=== PATIENT | female | born 1945 | race Caucasian/White ===

== ENCOUNTER 2019-03-02 06:00 | Outpatient (RCR) | payer MEDICARE, MEDICAID, SELFPAY | END 2019-04-01 00:01 | LOC: SPT 06:00 | PROVIDERS: Family Provider Family Medicine; Visit Provider Orthopaedic Surgery | DX: S42.202D Unspecified fracture of upper end of left humerus, subsequent encounter for fracture with routine healing (principal); X58.XXXD Exposure to other specified factors, subsequent encounter | CPT/HCPCS: 97110 ×8 ==

== ENCOUNTER 2019-04-03 | Outpatient (RCR) | payer MEDICARE, MEDICAID, SELFPAY | END 2019-04-09 | disposition home or self-care (01) | LOC: SPT | PROVIDERS: Family Provider Family Medicine; PCP Family Medicine; Visit Provider Orthopaedic Surgery | DX: M53.3 Sacrococcygeal disorders, not elsewhere classified (principal) | CPT/HCPCS: 97110 ==

== ENCOUNTER → 2019-04-07 13:53 | Outpatient (BNVA) | payer MEDICARE, MEDICAID, SELFPAY | PROVIDERS: Family Provider Family Medicine; PCP Family Medicine; Visit Provider Orthopaedic Surgery | DX: S42.202A Unspecified fracture of upper end of left humerus, initial encounter for closed fracture (principal); X58.XXXA Exposure to other specified factors, initial encounter | CPT/HCPCS: 73030 ==

== ENCOUNTER → 2019-05-08 10:42 | Outpatient (BNVA) | payer MEDICARE, MEDICAID, SELFPAY | PROVIDERS: Family Provider Family Medicine; PCP Family Medicine; Visit Provider Orthopaedic Surgery | DX: S42.292A Other displaced fracture of upper end of left humerus, initial encounter for closed fracture (principal); X58.XXXA Exposure to other specified factors, initial encounter | CPT/HCPCS: 73030 ==

== ENCOUNTER 2019-05-14 10:24 | Outpatient (CLI) | payer MEDICARE, MEDICAID, SELFPAY ==
--- NOTE | 2019-05-14 | XR_ITS ---
WS: [id number] KNEE LEFT TECHNIQUE: 3 views of the left knee CLINICAL INFORMATION: LEFT MEDIAL KNEE PAIN, RIGHT KNEE PAIN COMPARISON: None. FINDINGS: Osteopenia. Advanced degenerative arthritis medial joint compartment with joint space narrowing. Late ral compartment is better preserved. Vascular calcification. Hypertrophic changes along the joint herminio e. Hypertrophic patella. Advanced degenerative narrowing patellofemoral articulation. XR/XR knee LT 3V* [id number] IMPRESSION: Advanced degenerative arthritis involving the medial joint compartment and toro llofemoral articulation.
--- NOTE | 2019-05-14 | XR_ITS ---
WS: [id number] KNEE RIGHT TECHNIQUE: 3 views of the right knee CLINICAL INFORMATION: LEFT MEDIAL KNEE PAIN, RIGHT KNEE PAIN COMPARISON: None. FINDINGS: Osteopenia. Advanced degenerative arthritis medial joint compartment joint space narrowing. Lateral c ompartment is better preserved. Vascular calcification. Hypertrophic patella. Advanced narrowing at t he patellofemoral articulation. XR/XR knee RT 3V* [id number] IMPRESSION: Advanced degenerative arthritis medial joint compartment and patellofemoral art iculation.
--- NOTE | 2019-05-14 | XR_ITS ---
WS: [id number] LUMBAR SPINE TECHNIQUE: 5 views of the lumbar spine CLINICAL INFORMATION: PAIN OF RIGHT SACROILIAC JOINT COMPARISON: None. FINDINGS: Five [id number]-htldmoy lumbar vertebral bodies. Osteopenia. Mild lumbar curve convex left. Cholecystect luis carlos clips. Pelvic phleboliths. Disc space heights are relatively well-preserved. No acute appearing c ompression fractures. Mild facet arthropathy L5-S1. Chronic anterior wedging in the lower thoracic sp ine with hypertrophic changes. No instability on flexion-extension. XR/XR lumbar spine min 4V [id number] IMPRESSION: 1. Mild lumbar curve convex left. No instability on flexion-extension. 2. Disc space heights vertebral body heights are relatively well-preserved. 3. Facet arthropathy L5-S1. 4. Chronic anterior wedging lower thoracic spine.
== END 2019-05-14 10:25 | disposition home or self-care (01) ==
LOC: RADWPI 12:22 → RADOUTREAD 12:39
PROVIDERS: Family Provider Family Medicine; PCP Family Medicine; Visit Provider Family Medicine
DX: Z76.89 Persons encountering health services in other specified circumstances (principal)

== ENCOUNTER 2019-05-26 06:00 | Outpatient (RCR) | payer MEDICARE, MEDICAID, SELFPAY | END 2019-05-31 23:59 | disposition home or self-care (01) | LOC: SPT 06:00 | PROVIDERS: Family Provider Family Medicine; PCP Family Medicine; Referring Provider Family Medicine; Visit Provider Family Medicine | DX: M53.3 Sacrococcygeal disorders, not elsewhere classified (principal) | CPT/HCPCS: 97110; 97161 ==

== ENCOUNTER 2019-06-01 06:00 | Outpatient (RCR) | payer MEDICARE, MEDICAID, SELFPAY | END 2019-07-01 12:36 | disposition home or self-care (01) | LOC: SPT 06:00 | PROVIDERS: Family Provider Family Medicine; PCP Family Medicine; Referring Provider Family Medicine; Visit Provider Family Medicine | DX: M53.3 Sacrococcygeal disorders, not elsewhere classified (principal) | CPT/HCPCS: 97110; 97530 ==

== ENCOUNTER 2019-07-11 11:25 | Emergency (ER) | payer MEDICARE, MEDICAID, SELFPAY ==
[2019-07-11 11:35] VITALS: BP 157/84; PULSE 78; RESP 20; TEMP 36.9; O2SAT 97; BMI 37.5
--- NOTE | 2019-07-11 11:48 | ED_ITS ---
HPI - Abdominal Pain General: Chief Complaint: Abdominal Pain Stated Complaint: ABD PAIN Time Seen by Provider: 07/11/19 11:43 History of Present Illness: HPI narrative: 74-year-old female presents with complaint of abdominal pain. 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 Patient relates she has had pain for the last couple days in the epigastric right upper quadrant area has had nausea with no vomiting. No hematemesis coffee-ground emesis. No dysuria urgency or frequency denies respiratory symptoms or fever. Has taken some [id number] antacids with no significant relief. Associated Symptoms: Reports nausea; Denies bloating, chills, coffee ground emesis, constipation, diarrhea, dysuria, fever(s), hematochezia, hematemesis, melena and vomiting Review of Systems Const: Denies: fever, chills, body aches, change in appetite, fatigue or malaise ENMT: Denies: throat pain, ear pain, nasal discharge or nasal congestion Card: Denies: chest pain, edema, shortness of breath on exertion or shortness of breath when lying down Resp: Denies: shortness of breath, productive cough or non-productive cough GI: Reports: abdominal pain and nausea; Denies: vomiting, vomiting blood, coffee grounds in vomit, diarrhea, constipation, bloating, blood in stool or black tarry stool : Denies: flank pain, difficulty urinating, painful urination, urinary frequency or urinary urgency Skin/Breast: Denies: rash or itching PFS ED PFSH: Family History Sister Diabetes Denies family history of CAD (coronary artery disease) Clotting disorder Dementia Hyperlipidemia Psychiatric illness Chronic kidney disease (CKD) Suicide Anesthesia complication Bleeding disorder Family history of premature coronary artery disease Lung disease Cancer Hypertension Stroke Social History Smoking and tobacco status: never smoked Second hand smoke exposure: No Alcohol intake: never Physical Exam Narrative: EXAM NARRATIVE: History and exam done with assistance of oracle business analyst on speaker phone. Const: COMMON NORMALS: no apparent distress GENERAL APPEARANCE: cooperative and comfortable ORIENTATION/CONSCIOUSNESS: Yes awake, Yes oriented to person, Yes oriented to place and Yes oriented to time HENMT: COMMON NORMALS: normocephalic, head/scalp atraumatic, hearing grossly normal bilaterally, external ears normal, EAC's normal, TM's normal bilaterally, nasal mucous membranes and turbinates normal, moist oral mucous membranes and oropharynx normal HEAD & SCALP: normocephalic and atraumatic NOSE: nasal mucous membranes and turbinates normal EXTERNAL EAR: Yes external ears normal EXTERNAL AUDITORY CANAL: EAC's normal TYMPANIC MEMBRANE: TM's normal bilaterally Eye: COMMON NORMALS: PERRL, EOMs intact bilaterally, conjunctivae normal and no scleral icterus CONJUNCTIVA: Yes conjunctivae normal PUPIL: Yes PERRL Neck/C-Spine: COMMON NORMALS: full ROM, no lymphadenopathy, supple and no JVD Lymph: LYMPHATIC: no lymphadenopathy noted and no lymphedema noted Resp: COMMON NORMALS: normal respiratory effort, no retractions, no use of accessory muscles and clear to auscultation bilaterally AUSCULTATION: clear to auscultation bilaterally Cardio: COMMON NORMALS: no JVD, regular rate, regular rhythm and no murmurs RATE: regular rate RHYTHM: regular rhythm GI: COMMON NORMALS: soft to palpation and no hepatosplenomegaly AUSCULTATION: Yes normoactive bowel sounds PALPATION: Yes soft, Yes tender Details: RUQ and other (Epigastric), No guarding and Yes no hepatosplenomegaly Extremity: COMMON NORMALS: normal to inspection, normal capillary refill, no clubbing, cyanosis or edema, no calf tenderness and no pedal edema Neuro: SENSORIUM/ORIENTATION: Yes oriented to person, Yes oriented to place and Yes oriented to time Skin: COMMON NORMALS: no rashes or lesions noted GENERAL SKIN EXAM: no rashes or lesions noted Course Vital Signs: Vital signs: Vital Signs Temperature 98.4 F 07/11/19 11:35 Pulse Rate 62 07/11/19 15:26 Respiratory Rate 16 07/11/19 16:06 Blood Pressure 127/71 07/11/19 16:06 Pulse Oximetry 94 07/11/19 15:26 MDM - Abdominal Pain MDM Narrative: Medical decision making narrative: No significant finding on exam patient reports pain is improved somewhat. We will go ahead and discharge her home on pantoprazole twice daily for 14 days and then daily follow-up with primary care doctor within the next week. Lab Data: Labs: Lab Results 07/11/19 07/11/19 07/11/19 Range/Units 12:26 12:26 12:35 WBC 6.4 (4.0-10.0) 10^3/ uL RBC 4.31 (4.1-5.3) 10^6/u L Hgb 12.3 (11.5-15.3) g/dL Hct 38.3 (37.0-47.0) % MCV 88.9 (81-99) fL MCH 28.5 (28.0-34.0) pg MCHC 32.1 (30.0-36.0) g/dL RDW 13.1 (12.1-15.1) % Plt Count 271 (130-400) 10^3/c mm MPV 9.2 (7.4-10.4) fL Neut % (Auto) 61.0 % Lymph % (Auto) 30.5 % [place] % (Auto) 6.7 % Eos % (Auto) 0.6 % Baso % (Auto) 0.6 % Neut # (Auto) 3.9 (1.8-7.7) 10^3/u L Lymph # (Auto) 2.0 (0.8-4.8) 10^3/u L [place] # (Auto) 0.4 (0.2-0.9) 10^3/u L Eos # (Auto) 0.0 (0.0-0.8) 10^3/u L Baso # (Auto) 0.0 (0.0-0.1) 10^3/u L Nucleated RBC % (a uto) 0 % Nucleated RBCs # 0.0 /100WBC Sodium 141 (136-145) mmol/L Potassium 4.0 (3.5-5.1) mmol/L Chloride 102 (98-107) mmol/L Carbon Dioxide 28 (22-29) mmol/L Anion Gap 15.0 (5-19) BUN 16 (8-23) mg/dL Creatinine 0.9 (0.5-0.9) mg/dL Glucose 130 H (65-115) mg/dL Calculated Osmolal ity 290 (285-295) mOsm/k g Calcium 10.1 (8.5-10.5) mg/dL Total Bilirubin 0.6 (0.15-1.2) mg/dL AST 19 (0-32) U/L ALT 15 (0-33) U/L Alkaline Phosphata se 104 (35-105) IU/L Total Protein 7.6 (6.6-8.7) g/dL Albumin 4.1 (3.5-5.2) g/dL Globulin 3.5 (1.3-4.6) g/dL Lipase 30 (13-60) U/L Urine Color Yellow (Yellow) Urine Appearance Clear (CLEAR) Urine pH 6.5 (5-7) Ur Specific Gravit y 1.005 (1.005-1.030) Urine Protein Neg (Negative) Urine Glucose (UA) Norm (Normal) Urine Ketones Negative (Negative) Urine Blood Neg (Negative) Urine Nitrate Negative (Negative) Urine Bilirubin Neg (NEGATIVE) Urine Urobilinogen Norm (Negative) mg/dL Ur Leukocyte Asiya ase Negative (Negative) Urine Opiates Scre en (Negative) ng/mL Ur Barbiturates Sc reen (Negative) ng/mL Ur Phencyclidine S crn (Negative) ng/mL Ur Amphetamines Sc reen (Negative) ng/mL U Benzodiazepines Scrn (Negative) ng/mL Urine Cocaine Scre en (Negative) ng/mL U Marijuana (THC) Screen (Negative) ng/mL 07/11/19 Range/Units 12:35 WBC (4.0-10.0) 10^3/ uL RBC (4.1-5.3) 10^6/u L Hgb (11.5-15.3) g/dL Hct (37.0-47.0) % MCV (81-99) fL MCH (28.0-34.0) pg MCHC (30.0-36.0) g/dL RDW (12.1-15.1) % Plt Count (130-400) 10^3/c mm MPV (7.4-10.4) fL Neut % (Auto) % Lymph % (Auto) % [place] % (Auto) % Eos % (Auto) % Baso % (Auto) % Neut # (Auto) (1.8-7.7) 10^3/u L Lymph # (Auto) (0.8-4.8) 10^3/u L [place] # (Auto) (0.2-0.9) 10^3/u L Eos # (Auto) (0.0-0.8) 10^3/u L Baso # (Auto) (0.0-0.1) 10^3/u L Nucleated RBC % (a uto) % Nucleated RBCs # /100WBC Sodium (136-145) mmol/L Potassium (3.5-5.1) mmol/L Chloride (98-107) mmol/L Carbon Dioxide (22-29) mmol/L Anion Gap (5-19) BUN (8-23) mg/dL Creatinine (0.5-0.9) mg/dL Glucose (65-115) mg/dL Calculated Osmolal ity (285-295) mOsm/k g Calcium (8.5-10.5) mg/dL Total Bilirubin (0.15-1.2) mg/dL AST (0-32) U/L ALT (0-33) U/L Alkaline Phosphata se (35-105) IU/L Total Protein (6.6-8.7) g/dL Albumin (3.5-5.2) g/dL Globulin (1.3-4.6) g/dL Lipase (13-60) U/L Urine Color (Yellow) Urine Appearance (CLEAR) Urine pH (5-7) Ur Specific Gravit y (1.005-1.030) Urine Protein (Negative) Urine Glucose (UA) (Normal) Urine Ketones (Negative) Urine Blood (Negative) Urine Nitrate (Negative) Urine Bilirubin (NEGATIVE) Urine Urobilinogen (Negative) mg/dL Ur Leukocyte Asiya ase (Negative) Urine Opiates Scre en Negative (Negative) ng/mL Ur Barbiturates Sc reen Negative (Negative) ng/mL Ur Phencyclidine S crn Negative (Negative) ng/mL Ur Amphetamines Sc reen Negative (Negative) ng/mL U Benzodiazepines Scrn Negative (Negative) ng/mL Urine Cocaine Scre en Negative (Negative) ng/mL U Marijuana (THC) Screen Negative (Negative) ng/mL Discharge Plan Discharge Patient Disposition: Home, Self-Care Clinical Impression: Gastroesophageal reflux disease Condition: Stable Prescriptions: New Zofran 4 mg tablet 4 mg PO Q6H PRN (Reason: nausea and vomiting) Qty: 20 RF: 0 pantoprazole 40 mg tablet,delayed release (DR/EC) 40 mg PO BID 14 Days Qty: 28 RF: 0 Changed pantoprazole 40 mg tablet,delayed release (DR/EC) 40 mg PO BID Qty: 0 RF: 0 No Action oxycodone-acetaminophen [Percocet] 5-325 mg tablet 1 tab PO Q6H PRNRF: 0 levothyroxine 50 mcg capsule 50 mcg PO ONCE RF: 0 B-complex with vitamin C Capsule 1 cap PO ONCE RF: 0 irbesartan-hydrochlorothiazide 300-12.5 mg tablet 1 tab PO ONCE RF: 0 Discharge Orders: Discharge Order (Routine); Ordered 07/11/19 Ordered By: Kelvin Phillips Referrals: Harjit Gruber MD [Primary Care Provider] - Discharge Diet: As Directed Discharge Activity: Increase activity as tolerated Patient Instructions: Diet for Ulcers and Gastritis (ED) Discharge Date/Time: 07/11/19 16:08 Coding Level of Care Code ED Stick Roller for Tatyg Fwd Exam Comprehensive
--- NOTE | 2019-07-11 12:13 | ECG_ITS ---
Measurements Intervals [place] Rate: 66 P: 17 NE: 183 QRS: 3 QRSD: 93 T: 23 QT: 415 QTc: 435 SINUS RHYTHM Compared to ECG 08/02/2015 17:29:30 Sinus arrhythmia no longer present Left ventricular hypertrophy no longer present Electronically Signed On 07-11-2019 17:06:33 CDT by Jacqueline Kirk M.D. [id number]
--- NOTE | 2019-07-11 12:13 | CT_ITS ---
WS: [id number] CT ABDOMEN PELVIS TECHNIQUE: Contrast-enhanced CT of the abdomen and pelvis with coronal and sagittal reformatted image s. CLINICAL INFORMATION: abd pain COMPARISON: 2008 DLP: 1853.[address] scans at [facility] use at least one of these dose optimization techniques: automat ed exposure control; mA and/or kV adjustment per patient size (includes targeted exams where dose is matched to clinical indication); or iterative reconstruction. FINDINGS: Liver is normal in appearance. Cholecystectomy clips. Normal spleen. Mild fatty atrophy of the pancre as. Small esophageal hiatal hernia. Small left adrenal adenoma measuring 18 mm. Right adrenal gland i s normal. No hydronephrosis. Normal renal parenchymal enhancement. Normal caliber abdominal aorta. Sigmoid diverticulosis. No evidence of acute diverticulitis. Normal colon. No evidence of small or la rge bowel obstruction. Cardiomegaly. Bibasilar atelectasis. 11 mm left upper pole suspected renal cor tical cyst. Incidental fat-containing umbilical hernia. Attempted notification Kelvin Phillips DO at 07/11/2019 2:[address]/CT abdomen pelvis w con* [id number] IMPRESSION: 1. No acute abdominal or pelvic findings. 2. Diverticulosis. No evidence of acute diverticulitis. 3. No evidence of small or large bowel obstruction. 4. Prior cholecystectomy. 5. Small esophageal hiatal hernia. 6. Cardiomegaly with bibasilar atelectasis. 7. 11 mm left upper pole suspected cortical cyst. This can be followed up with ultrasound on an elective basis.
[2019-07-11 12:41] VITALS: BP 154/82; PULSE 68; RESP 16; O2SAT 97
[2019-07-11 12:43] LABS: Basophils % 0.6 %; Eosinophils % 0.6 %; Hematocrit 38.3 % (37.0-47.0); Hemoglobin 12.3 g/dL (11.5-15.3); Lymphocytes % 30.5 %; Mean Corpuscular HGB Conc 32.1 g/dL (30.0-36.0); Mean Corpuscular Hemoglobin 28.5 pg (28.0-34.0); Mean Corpuscular Volume 88.9 fL (81-99); Mean Platelet Volume 9.2 fL (7.4-10.4); Monocytes # 0.4 10^3/uL (0.2-0.9); Monocytes % 6.7 %; Neutrophils # 3.9 10^3/uL (1.8-7.7); Nucleated Red Blood Cells % 0 %; Platelet Count 271 10^3/cmm (130-400); Red Blood Count 4.31 10^6/uL (4.1-5.3); Red Cell Distribution Width 13.1 % (12.1-15.1); White Blood Count 6.4 10^3/uL (4.0-10.0)
[2019-07-11 12:57] LABS: Add Urine Microscopic? NO
[2019-07-11 13:00] VITALS: BP 151/76; PULSE 58; RESP 18; O2SAT 97
[2019-07-11 13:10] LABS: Amphetamines Screen Urine Negative (Negative); Barbiturates Screen Urine Negative (Negative); Benzodiazepines Screen Urine Negative (Negative); Bilirubin Urine Neg (NEGATIVE); Blood Urine Neg (Negative); Cocaine Screen Urine Negative (Negative); Glucose Urine UA Norm (Normal); Ketones Urine Negative (Negative); Leukocyte Esterase Urine Negative (Negative); Nitrate Urine Negative (Negative); Opiate Screen Urine Negative (Negative); PCP Screen Urine Negative (Negative); Protein Urine Neg (Negative); Specific Gravity, Urine 1.005 (1.005-1.030); THC Screen Urine Negative (Negative); Urine Appearance Clear (CLEAR); Urine Color Yellow (Yellow); Urobilinogen Urine Norm (Negative); pH Urine 6.5 (5-7)
[2019-07-11 13:28] LABS: Alanine Aminotransferase 15 U/L (0-33); Albumin Level 4.1 g/dL (3.5-5.2); Alkaline Phosphatase 104 IU/L (35-105); Aspartate Amino Transferase 19 U/L (0-32); Blood Urea Nitrogen 16 mg/dL (8-23); Calcium 10.1 mg/dL (8.5-10.5); Carbon Dioxide 28 mmol/L (22-29); Chloride 102 mmol/L (98-107); Globulin 3.5 g/dL (1.3-4.6); Glucose 130 mg/dL (65-115); Lipase 30 U/L (13-60); Osmolality Calculated 290 mOsm/kg (285-295); Sodium 141 mmol/L (136-145); Total Bilirubin 0.6 mg/dL (0.15-1.2); Total Protein 7.6 g/dL (6.6-8.7)
[2019-07-11] MEDS: sodium chloride 0.9% 1,000 ML 999 ML IV (13:38)
[2019-07-11] MEDS: ondansetron 2 mg/ML SDV 2 mL 4 MG IVP (13:38)
[2019-07-11] MEDS: iohexol 300 mg/mL 100 mL Btl IV (13:52)
[2019-07-11 15:26] VITALS: BP 132/73; PULSE 62; RESP 16; O2SAT 94
[2019-07-11 16:06] VITALS: BP 127/71; RESP 16
== END 2019-07-11 16:08 | disposition home or self-care (01) ==
PROVIDERS: Emergency Provider Family Medicine; Family Provider Family Medicine; PCP Family Medicine
DX: K21.9 Gastro-esophageal reflux disease without esophagitis (principal)
CPT/HCPCS: 12345; 36415; 74177; 80053; 80306; 81003; 83690; 85025; 93005; 96361; 96374; 99284; J2405; J7030; Q9967

== ENCOUNTER → 2020-07-12 09:09 | Outpatient (BNVA) | payer MEDICARE, MEDICAID, SELFPAY | PROVIDERS: PCP Family Medicine; Referring Provider Family Medicine; Visit Provider Specialist | DX: M25.562 Pain in left knee (principal); M25.561 Pain in right knee | CPT/HCPCS: 73560; 73565 ==

== ENCOUNTER 2020-07-14 06:00 | Outpatient (RCR) | payer MEDICARE, MEDICAID, SELFPAY | END 2020-07-30 23:59 | disposition home or self-care (01) | LOC: SPT 06:00 | PROVIDERS: PCP Family Medicine; Referring Provider Specialist; Visit Provider Specialist | DX: M25.562 Pain in left knee (principal); M25.561 Pain in right knee | CPT/HCPCS: 97110; 97162 ==

== ENCOUNTER 2020-07-31 06:00 | Outpatient (RCR) | payer MEDICARE, SELFPAY | END 2020-08-30 23:59 | disposition home or self-care (01) | LOC: SPT 06:00 | PROVIDERS: PCP Family Medicine; Referring Provider Specialist; Visit Provider Specialist | DX: M25.562 Pain in left knee (principal); M25.561 Pain in right knee | CPT/HCPCS: 97110 ==

== ENCOUNTER 2021-02-07 10:13 | Outpatient (CLI) | payer MEDICARE, MEDICAID, SELFPAY ==
--- NOTE | 2021-02-07 10:17 | MM_ITS ---
WS: [id number] BILATERAL DIGITAL SCREENING MAMMOGRAPHY WITH CAD CLINICAL INFORMATION: SCREENING HISTORY: Screening mammogram. No current complaints. COMPARISON: None. TECHNIQUE: Bilateral CC and MLO views. FINDINGS: Scattered fibroglandular densities bilaterally. Benign punctate calcifications. Benign secretory calc ifications. Vascular calcification. No suspicious focal mass, asymmetry, calcifications, or commercial green building architect ural distortion. No evidence of malignancy. MM/[place] [id number] IMPRESSION: BI-RADS: 2-Benign FOLLOW UP: 1 Year Follow-up Recommend return to annual screening mammography.
== END 2021-02-07 10:14 | disposition home or self-care (01) ==
LOC: RADSHAW 10:15
PROVIDERS: PCP Family Medicine; Visit Provider Physician Assistant
DX: Z12.31 Encounter for screening mammogram for malignant neoplasm of breast (principal)
CPT/HCPCS: 77067

== ENCOUNTER → 2021-08-22 14:48 | Outpatient (BNVA) | payer MEDICARE, MEDICAID, SELFPAY | PROVIDERS: PCP Family Medicine; Visit Provider Specialist | DX: M17.0 Bilateral primary osteoarthritis of knee (principal); Z71.89 Other specified counseling | CPT/HCPCS: 20610; 99213 ==

== ENCOUNTER → 2021-11-22 15:32 | Outpatient (BNVA) | payer MEDICARE, MEDICAID, SELFPAY | PROVIDERS: PCP Family Medicine; Visit Provider Internal Medicine Cardiovascular Disease | DX: I83.893 Varicose veins of bilateral lower extremities with other complications (principal); I11.0 Hypertensive heart disease with heart failure; I50.9 Heart failure, unspecified; R00.0 Tachycardia, unspecified | CPT/HCPCS: 99214 ==

== ENCOUNTER → 2021-11-24 10:34 | Outpatient (BNVA) | payer MEDICARE, MEDICAID, SELFPAY | PROVIDERS: PCP Family Medicine; Visit Provider Specialist | DX: M17.0 Bilateral primary osteoarthritis of knee (principal); Z71.89 Other specified counseling | CPT/HCPCS: 20610; J1100; J2795; J3301 ==

== ENCOUNTER 2022-01-16 10:32 | Outpatient (CLI) | payer MEDICARE, MEDICAID, SELFPAY ==
--- NOTE | 2022-01-16 | USCV_ITS ---
Laura Johnson Age: 76 Gender: F : 1945 Exam Date: 01/16/2022 11:02 Ordering Phys: Harjit Gruber MD Technologist: Horace Stanley Electrical Laboratory Technician [place]am [place] [facility] [place]: claudication RIGHT LEFT Brachial 132.00 mmHg Brachial 124.00 mmHg Pressure (mmHg) Waveform Pressure (mmHg) Waveform 168.00 SUPERVISOR PLASTIC SHEETS 162.00 130.00 DPA 140.00 1.27 Ankle/Brachial Index 1.23 93.00 Pre-Exercise Toe Pressure 159.00 0.70 Pre-Exercise Toe/Brachial Index 1.20 FINDINGS Resting BINA 1.27 on the right side and 1.23 on the left side Resting TBI of 0.7 on the right and 1.2 on the left CONCLUSIONS Normal resting ABIs bilaterally Abnormal resting BINA on the right side, suggestive of mild peripheral artery disease. No significant arterial obstruction on the left side, based on the above findings Dr Jacqueline Kirk MD [facility] (Electronically Signed) Final Date: 16 January 2022 23:07 S
== END 2022-01-16 10:33 | disposition home or self-care (01) ==
PROVIDERS: PCP Family Medicine; Visit Provider Family Medicine
DX: I70.213 Atherosclerosis of native arteries of extremities with intermittent claudication, bilateral legs (principal); D17.0 Benign lipomatous neoplasm of skin and subcutaneous tissue of head, face and neck
CPT/HCPCS: 93922; 99204

== ENCOUNTER 2022-01-26 09:13 | Day surgery (SDC) | payer MEDICARE, MEDICAID, SELFPAY ==
[2022-01-25 15:06] VITALS: BMI 42.7
[2022-01-26] VITALS (8 sets, daily range): BP systolic 169–193; BP diastolic 82–99; PULSE 62–110; RESP 12–19; TEMP 36.1–36.6; O2SAT 94–99
[2022-01-26] MEDS: sodium chloride 0.9% 1,000 ML 30 ML IV (09:59)
--- NOTE | 2022-01-26 10:01 | ECG_ITS ---
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 Measurements Intervals [place] Rate: 68 P: -2 LA: 193 QRS: -10 QRSD: 96 T: 11 QT: 408 QTc: 436 Interpretive Statements SINUS RHYTHM Compared to ECG 07/11/2019 12:39:23 No significant changes Electronically Signed On 01-26-2022 18:05:13 CDT by Gifty Chahal M.D. [id number]
[2022-01-26 10:38] LABS: Blood Urea Nitrogen 11 mg/dL (8-23); Calcium 9.5 mg/dL (8.5-10.5); Carbon Dioxide 26 mmol/L (22-29); Chloride 97 mmol/L (98-107); Glucose 119 mg/dL (65-115); Osmolality Calculated 281 mOsm/kg (285-295); Sodium 135 mmol/L (136-145)
--- NOTE | 2022-01-26 11:26 | W.PM.OPSUD ---
Surgery/Procedure H&P Update DATE OF PROCEDURE: January 26, 2022 DATE H&P PERFORMED: 01/16/22 H&P UPDATE INFORMATION: I have reviewed H&P completed within last 30 days, I have examined patient prior to procedure and No changes to prior documentation PREOP DIAGNOSIS: Posterior neck lipoma PRIMARY INDICATION FOR PROCEDURE: Posterior neck/upper back lipoma PLANNED PROCEDURE: Operation Date: 01/26/22 10:35 Proposed Procedures p excision of lipoma of neck 33563,D17.0(Not Applicable) - Armond Bruno MD
--- NOTE | 2022-01-26 11:26 | ANES.PREANE2 ---
Pre-Anesthetic Assessment Height/Weight: Height 1.68 m Weight 120.202 kg Temp Pulse Resp BP Pulse Ox O2 Del Method 97.0 F L 78 18 180/95 95 01/26/22 09:30 01/26/22 09:30 01/26/22 09:30 01/26/22 09:30 01/26/22 09:30 01/26/22 09:42 Preop Diagnosis: Posterior neck lipoma Operation Date: 01/26/22 10:35 Proposed Procedures p excision of lipoma of neck 19689,D17.0(Not Applicable) - Armond Bruno MD Familial anesthetic complications: none Was Beta Tyson taken within 24 hours: N/A Was Clonidine taken within 24 hours: N/A Last intake: Intake Last Liquid Date 01/25/22 Last Liquid Time 22:00 Last Solid Date 01/25/22 Last Solid Time 18:30 Social No alcohol and No tobacco Exam alert, oriented x 3, clear to auscultation bilaterally and regular rate & rhythm Airway Submandibular: within normal limits Cervical ROM: within normal limits Mallampati: Class II Dentition: false CV/HEM Hypertension Metabolic Hyperlipidemia, Morbid Obesity and Thyroid Disease Anesthetic Plan ASA status: 3 Anesthesia: General Medications/Allergies Home Medications Medication Instructions Recorded Confirmed Last Taken Type simvastatin 20 mg tablet 20 mg PO DAILY 01/01/20 01/26/22 01/25/22 History hydrochlorothiazide 12.5 mg tablet 12.5 mg PO DAILY PRN edema #30 tabs 11/22/21 01/26/22 01/26/22 Rx irbesartan 300 1 tab PO DAILY 11/22/21 01/26/22 01/26/22 History mg-hydrochlorothiazide 12.5 mg tablet levothyroxine 50 mcg capsule 50 mcg PO DAILY 11/22/21 01/25/22 Unknown History calcium 500 mg tablet 500 mg PO DAILY 01/25/22 01/26/22 01/24/22 History cinnamon bark 500 mg capsule 500 mg PO DAILY 01/25/22 01/26/22 01/25/22 History (Cinnamon) multivitamin 1 cap PO DAILY 01/25/22 01/26/22 01/24/22 History Allergies Allergy/AdvReac Type Severity Reaction Status Date / Time nitroglycerin Allergy Unknown Unknown Verified 01/25/22 14:59 ibuprofen Allergy ADR-Hyperte Verified 01/25/22 15:11 nsion Current Medications Generic Name Dose Route Start Last Admin Trade Name Allen PRN Reason Stop Dose Admin Sodium Chloride 1,000 mls @ 30 mls/hr 01/26/22 09:30 01/26/22 09:59 Sodium Chloride 0.9% IV 01/27/22 09:29 30 mls/hr .Q24H YURY Administration PFSH Anesthesia Medical History (Updated 01/16/22 @ 16:15 by Armond Bruno MD) Blepharospasm Comminuted left humeral fracture with routine healing Congestive heart failure Hyperlipidemia Hypertension Osteoarthritis of right knee Tachycardia Varicose veins of bilateral lower extremities with other complications Surgical History (Updated 01/16/22 @ 16:15 by Armond Bruno MD) H/O: hysterectomy History of cholecystectomy History of total knee arthroplasty Bilateral Family History Sister Diabetes Denies family history of CAD (coronary artery disease) Clotting disorder Dementia Hyperlipidemia Psychiatric illness Chronic kidney disease (CKD) Suicide Anesthesia complication Bleeding disorder Family history of premature coronary artery disease Lung disease Cancer Hypertension Stroke Social History Smoking and tobacco status: never smoked Second hand smoke exposure: No Alcohol intake: never Data Anesthesia : 01/26/22 09:55 BMP 01/26/22 09:55 Sodium 135 L Potassium 4.0 Chloride 97 L Carbon Dioxide 26 BUN 11 Creatinine 0.8 Glucose 119 H Calcium 9.5 Cardiac Studies: No Data to Display
[2022-01-26] MEDS: ceFAZolin 3,000 MG in sodium chloride 0.9% (100 ml) 100 ML 200 MG IV (11:35)
[2022-01-26] MEDS: neomycin-poly-bacitracin oint 28 gm 1 APPLIC TOPICAL (12:39)
--- NOTE | 2022-01-26 12:40 | SUR.OPER ---
1203 11.9ml of 2% lidocaine with epi injected into the surgical area by dr espana
--- NOTE | 2022-01-26 12:43 | PM.OP ---
Operative Report Date of procedure: January 26, 2022 Pre-op diagnosis: Preop Diagnosis Posterior neck lipoma Post-op diagnosis: Same Post-op findings: Multilobulated encapsulated lipoma Procedure done: Excision of multilobulated encapsulated lipoma Implants: No implants. No drain. Specimens removed/disposition: Lipoma Pathology: Lipoma for pathology Surgeon: Armond Bruno MD Anesthesia: General and Local Estimated blood loss: 10 mL Complications: No complications encountered Findings: Patient with a firm mass to the right side of midline in the upper back/lower neck. This has been bothering her when trying to sit in a chair. Therefore she wished this to be removed. Brief History: 77-year-old female patient presents today for excision of her upper back/lower neck lipoma. The procedure its risks and complications have been explained to her in detail. These risks include bleeding infection numbness scarring swelling bruising recurrence need for additional treatment and more serious risks associated with anesthesia. With these things understood informed consent was granted and witnessed. Road Equipment Operator was involved. Procedure: Description of procedure: The patient was placed on the operating table in the supine position. Adequate general endotracheal tube anesthesia was obtained. She was then placed into a prone position. All efforts were made to protect all appropriate joints and limbs. A timeout was accomplished identifying the patient date of plan procedure allergies fire risk and medications given. With all in agreement the procedure continued. A marking pen was used to outline the limits of the lipoma. The central incision was planned over the midpoint of the mass. It was decided to go in a horizontal direction rather than vertical because of the way her skin increased in that area. Then the area was cleansed with alcohol and injected utilizing a total of 11.9 mL of 2% Xylocaine with 1-100,000 epinephrine. This was done peripherally and on the surface for the actual incision. Then the patient was prepped and draped in usual fashion. The incision was once again outlined and crosshatch's for proper closure were made. The incision was made with low power cut on the needle tip Bovie. This was carried down to the subcutaneous fat and immediately deep to this became evident that the lipoma was well encased in a capsule. This separation between the subcutaneous fat and the capsule where is used as a guide to excise this lipoma. This was a multilobulated lipoma. Any lip vessels were clamped and cauterized. Once the mass was completely dissected free it was sent to pathology for permanent section only. The defect was irrigated with saline. The area was checked for any bleeding. There was a few small areas were bleeding was encountered and therefore bipolar cautery was used to obtain complete hemostasis. With this being such a dry area and with no evidence of wounds it was felt that a drain was not necessary. Therefore multilayer closure was accomplished with interrupted 4-0 chromic in the deep and subcutaneous layer and then the skin was closed with skin pari. The area was cleansed and Neosporin ointment was applied followed by Telfa and Medipore dressing. There was no sign of any active bleeding or drainage. Patient was returned to anesthesia for wake-up and transport to recovery. Patient tolerated the procedure well and had an estimated blood loss of 10 mL and arrived in recovery in stable condition.
--- NOTE | 2022-01-26 12:59 | SUR.PHASEI ---
1249 PT TO PACU 5 SLEEPY WITH GOOD RESP NOTED, IV TO RT AC #20 WITH NS 600ML AT KVO RATE PER GRAVITY, MONITOR SR WITH NO ECTOPY NOTED DRESSING ID BAND TO LT WRIST, PT ID'D WITH 2 IDENTIFIERS. BP ELEVATED. DRESSING TO POSTERIOR NECK D/I BILAT ROSSANA HOSE ON. 1305 PT MORE ALERT , ON RA TRIAL, PT BP IMPROVING VSS AND MONITOR UNCHANGED DRESSING TO POSTERIOR NECK D/I STILL
--- NOTE | 2022-01-26 14:35 | ANE.PACU2 ---
Inpatient post-anesthesia follow up: Airway intact: Yes Vital signs: Temperature 97.2 F Pulse Rate 62 Respiratory Rate 18 Blood Pressure 178/99 Pulse Oximetry 94 Oxygen Delivery Me thod Room Air Oxygen Flow Rate 8 Fraction of Inspir ed Oxygen Hydration adequate: Yes Nausea and vomiting: No Pain level: 2 Mental status: Baseline
== END 2022-01-26 14:20 | disposition home or self-care (01) ==
PROVIDERS: Anesthesiology; PCP Family Medicine; Visit Provider Otolaryngology
PROC: (CPT 11426; principal; 2022-01-26 10:25)
DX: D17.0 Benign lipomatous neoplasm of skin and subcutaneous tissue of head, face and neck (principal); E78.5 Hyperlipidemia, unspecified; E66.01 Morbid (severe) obesity due to excess calories; Z68.41 Body mass index [BMI] 40.0-44.9, adult; I11.0 Hypertensive heart disease with heart failure; I50.9 Heart failure, unspecified
CPT/HCPCS: 11426; 12042; 36592; 80048; 88304; 93005; J0690; J1100; J1200; J2405; J2704; J3010; J3490; J7030

== ENCOUNTER → 2022-02-03 10:40 | Outpatient (BNVA) | payer MEDICARE, MEDICAID, SELFPAY | PROVIDERS: PCP Family Medicine; Visit Provider Otolaryngology | DX: Z48.817 Encounter for surgical aftercare following surgery on the skin and subcutaneous tissue (principal); D17.0 Benign lipomatous neoplasm of skin and subcutaneous tissue of head, face and neck | CPT/HCPCS: 99024 ==

== ENCOUNTER → 2022-03-07 11:31 | Outpatient (BNVA) | payer MEDICARE, MEDICAID, SELFPAY | PROVIDERS: PCP Family Medicine; Visit Provider Otolaryngology | DX: Z48.89 Encounter for other specified surgical aftercare (principal); D17.0 Benign lipomatous neoplasm of skin and subcutaneous tissue of head, face and neck | CPT/HCPCS: 99024; 99212 ==

== ENCOUNTER → 2022-03-16 09:11 | Outpatient (BNVA) | payer MEDICARE, MEDICAID, SELFPAY | PROVIDERS: PCP Family Medicine; Visit Provider Specialist | DX: M17.0 Bilateral primary osteoarthritis of knee (principal); Z71.89 Other specified counseling | CPT/HCPCS: 20610; J1100; J2795; J3301 ==

== ENCOUNTER → 2022-05-26 10:07 | Outpatient (BNVA) | payer MEDICARE, MEDICAID, SELFPAY | PROVIDERS: PCP Family Medicine; Visit Provider Nurse Practitioner Family | DX: I11.0 Hypertensive heart disease with heart failure (principal); I50.9 Heart failure, unspecified | CPT/HCPCS: 99213 ==

== ENCOUNTER → 2022-06-08 10:48 | Outpatient (BNVA) | payer MEDICARE, MEDICAID, SELFPAY | PROVIDERS: PCP Family Medicine; Visit Provider Specialist | DX: M17.0 Bilateral primary osteoarthritis of knee (principal); Z71.89 Other specified counseling | CPT/HCPCS: 20610; J7318 ==

== ENCOUNTER → 2022-12-28 09:05 | Outpatient (BNVA) | payer MEDICARE, MEDICAID, SELFPAY | PROVIDERS: PCP Family Medicine; Visit Provider Specialist | DX: M17.0 Bilateral primary osteoarthritis of knee; Z71.89 Other specified counseling | CPT/HCPCS: 20610; J1100; J2795; J3301 ==

== ENCOUNTER → 2023-01-08 14:58 | Outpatient (BNVA) | payer MEDICARE, MEDICAID, SELFPAY | PROVIDERS: PCP Family Medicine; Visit Provider Podiatrist Foot & Ankle Surgery | DX: M19.071 Primary osteoarthritis, right ankle and foot; M19.072 Primary osteoarthritis, left ankle and foot | CPT/HCPCS: 73630; 99203 ==

== ENCOUNTER → 2023-04-09 12:54 | Outpatient (BNVA) | payer MEDICARE, MEDICAID, SELFPAY | PROVIDERS: PCP Family Medicine; Visit Provider Podiatrist Foot & Ankle Surgery | DX: M25.571 Pain in right ankle and joints of right foot; M25.572 Pain in left ankle and joints of left foot; M19.079 Primary osteoarthritis, unspecified ankle and foot; M79.671 Pain in right foot; M79.672 Pain in left foot | CPT/HCPCS: 99213 ==

== ENCOUNTER 2023-04-10 10:11 | Outpatient (CLI) | payer MEDICARE, MEDICAID, SELFPAY | END 2023-04-10 10:12 | disposition home or self-care (01) | LOC: SPT 10:20 | PROVIDERS: PCP Family Medicine; Visit Provider Podiatrist Foot & Ankle Surgery | DX: Z46.89 Encounter for fitting and adjustment of other specified devices (principal); M79.671 Pain in right foot; M79.672 Pain in left foot; M25.571 Pain in right ankle and joints of right foot; M25.572 Pain in left ankle and joints of left foot; M19.079 Primary osteoarthritis, unspecified ankle and foot | CPT/HCPCS: 97760; L3030 ==

== ENCOUNTER → 2023-04-12 09:06 | Outpatient (BNVA) | payer OTHER, MEDICAID, SELFPAY | PROVIDERS: PCP Family Medicine; Visit Provider Specialist | DX: M17.0 Bilateral primary osteoarthritis of knee (principal) | CPT/HCPCS: 20610; J1100; J2795; J3301 ==

== ENCOUNTER → 2023-07-27 09:09 | Outpatient (BNVA) | payer OTHER, MEDICAID, SELFPAY | PROVIDERS: PCP Family Medicine; Visit Provider Specialist | DX: M17.0 Bilateral primary osteoarthritis of knee (principal); Z71.89 Other specified counseling | CPT/HCPCS: 20610; J1100; J2795; J3301 ==

== ENCOUNTER → 2023-11-02 08:35 | Outpatient (BNVA) | payer OTHER, MEDICAID, SELFPAY | PROVIDERS: PCP Family Medicine; Visit Provider Specialist | DX: M17.0 Bilateral primary osteoarthritis of knee (principal) | CPT/HCPCS: 20610; J1100; J2795; J3301 ==

== ENCOUNTER → 2024-02-15 08:04 | Outpatient (BNVA) | payer OTHER, MEDICAID, SELFPAY | PROVIDERS: PCP Family Medicine; Visit Provider Specialist | DX: M17.0 Bilateral primary osteoarthritis of knee; Z71.89 Other specified counseling | CPT/HCPCS: 20610; J1100; J2795; J3301 ==

== ENCOUNTER → 2024-05-23 08:20 | Outpatient (BNVA) | payer OTHER, MEDICAID, SELFPAY | PROVIDERS: PCP Family Medicine; Visit Provider Specialist | DX: M17.0 Bilateral primary osteoarthritis of knee (principal) | CPT/HCPCS: 20610; J1100; J2795; J3301 ==

== ENCOUNTER 2024-08-24 13:07 | Emergency (ER) | payer OTHER, MEDICAID, SELFPAY ==
[2024-08-24 13:12] VITALS: BP 161/117; PULSE 70; TEMP 36.7; O2SAT 96
--- NOTE | 2024-08-24 13:44 | XRR_ITS ---
PROCEDURE INFORMATION: Exam: XR Left Tibia and Fibula Exam date and time: 08/24/2024 1:47 PM Age: 79 years old Clinical indication: Pain; Swelling, leg or foot; Lower leg; Left; Additional info: Pain, swelling, fall 1 week ago. TECHNIQUE: Imaging protocol: Radiologic exam of the left tibia and fibula. Views: 2 views. COMPARISON: [place] [id number] ORTH 01/08/2023 3:04 PM FINDINGS: Bones/joints: No evidence of acute fracture or subluxation. Tibia and fibula are intact. 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 If there is concern for plantar fascial pathology, follow-up outpatient MRI may be helpful. Soft tissues: Diffuse soft tissue edema. There appears to be muscular fatty atrophy of the calf musculature. XR/XR tibia fibula LT 2V [id number] IMPRESSION: 1. Tibia and fibula are intact. If there is ongoing clinical suspicion for traumatic injury, consider correlation with CT.
--- NOTE | 2024-08-24 13:44 | USR_ITS ---
PROCEDURE INFORMATION: Exam: US Duplex Left Lower Extremity Veins, Limited Exam date and time: 08/24/2024 2:10 PM Age: 79 years old Clinical indication: Pain; Leg, lower; Left; Prior surgery; Surgery date: 6+ months; Surgery type: Unsure of clear history. Patient states she has had a vein removed from that leg. ; Additional info: Left leg pain/swelling TECHNIQUE: Imaging protocol: Real-time duplex ultrasound of the left extremity with 2-D willis scale, color Doppler flow and spectral waveform analysis including responses to compression and other maneuvers (when performed) with image documentation. Limited exam focused on the left lower extremity veins. COMPARISON: US CV ankle brachial index [id number] 01/16/2022 11:02 AM FINDINGS: Left deep veins: The common femoral, femoral, proximal profunda femoral and popliteal veins are patent without evidence of thrombus and demonstrate normal waveforms. Superficial veins: There is echogenic material and irregularity of the inferior greater saphenous vein raising the question of postprocedural change versus thrombosis. Soft tissues: 1.4 x 4.5 x 1.5 cm focus of fluid in the popliteal fossa most suggestive of a Camacho's cyst with synovial hypertrophy. There may be intra-articular bodies within the cyst. US/[place] [id number] IMPRESSION: 1. No sonographic evidence of deep venous thrombosis in the left lower extremity. 2. Abnormal left greater saphenous vein raising the question of postprocedural change versus superficial thrombophlebitis.
--- NOTE | 2024-08-24 15:04 | W.ED.EXTPRO ---
HPI - Extremity Problem General: Chief complaint: Extremity Injury, Lower Stated complaint: numbness in lft foot Time Seen by Provider: 08/24/24 13:17 History of Present Illness: Patient is an elderly Guyanese-speaking female presenting with left leg pain and numbness following a fall two weeks ago. The injury initially resulted in significant ecchymosis described as 'really black and really dark blue.' While the bruising has somewhat improved, the patient continues to experience numbness and pain in the left lower extremity, particularly in the anterior aspect. The pain extends from the thigh to the lower leg, with some involvement of the knee area. Patient maintains ability to ambulate and perform basic range of motion, though with reported discomfort. Related Data Home Medications ?Medication ?Instructions ?Recorded ?Confirmed irbesartan 300 1 tab PO DAILY 11/22/21 08/24/24 mg-hydrochlorothiazide 12.5 mg tablet cinnamon bark 500 mg capsule 500 mg PO DAILY 01/25/22 08/24/24 (Cinnamon) calcium carbonate 500 mg PO DAILY 08/24/24 08/24/24 levothyroxine 50 mcg tablet 50 mcg PO QAM 08/24/24 08/24/24 metformin 500 mg tablet,extended 500 mg PO DAILY 08/24/24 08/24/24 release 24 hr multivitamin 1 tab PO DAILY 08/24/24 08/24/24 pantoprazole 40 mg tablet,delayed 40 mg PO DAILY 08/24/24 08/24/24 release simvastatin 40 mg tablet 40 mg PO BEDTIME 08/24/24 08/24/24 Previous Rx's ?Medication ?Instructions ?Recorded custom inserts #1 ea 01/08/23 hydrocodone 5 mg-acetaminophen 325 1 tab PO Q8H #10 tabs 08/24/24 mg tablet Allergies Allergy/AdvReac Type Severity Reaction Status Date / Time nitroglycerin Allergy Unknown Unknown Verified 08/24/24 13:26 ibuprofen Allergy ADR-Hyperte Verified 08/24/24 13:26 nsion [facility] PFS: Medical History Hyperlipidemia Blepharospasm Osteoarthritis of right knee Comminuted left humeral fracture with routine healing Varicose veins of bilateral lower extremities with other complications Tachycardia Congestive heart failure Hypertension Surgical History History of cholecystectomy H/O: hysterectomy History of total knee arthroplasty Bilateral Family History Sister Diabetes Denies family history of CAD (coronary artery disease) Clotting disorder Dementia Hyperlipidemia Psychiatric illness Chronic kidney disease (CKD) Suicide Anesthesia complication Bleeding disorder Family history of premature coronary artery disease Lung disease Cancer Hypertension Stroke Social History Smoking and tobacco/nicotine status: never used tobacco/nicotine Second hand smoke exposure: No Alcohol intake: never Substance/Drug Use: never Physical Exam Const: COMMON NORMALS: no acute distress, average body habitus, alert and well nourished GENERAL APPEARANCE: cooperative ORIENTATION/CONSCIOUSNESS: Yes awake HENMT: COMMON NORMALS: normocephalic and atraumatic HEAD & SCALP: normocephalic and atraumatic Eye: COMMON NORMALS: conjunctivae normal CONJUNCTIVA: Yes conjunctivae normal Neck/C-Spine: GENERAL: Yes normal visual inspection Resp: COMMON NORMALS: normal respiratory effort, No retractions and No use of accessory muscles Cardio: COMMON NORMALS: regular rhythm and Peripheral pulses 2+ throughout RHYTHM: regular rhythm PERIPHERAL PULSES: Peripheral pulses 2+ throughout GI: COMMON NORMALS: Soft to palpation and non-tender PALPATION: Yes Soft to palpation Extremity: COMMON NORMALS: full ROM NARRATIVE EXTREMITY EXAM: Moderate amount of swelling noted to the left lower leg, palpable DP PT pulses. Neuro: COMMON NORMALS: no focal motor deficits SENSORIUM/ORIENTATION: Yes alert Skin: COMMON NORMALS: no rashes or lesions noted GENERAL SKIN EXAM: no rashes or lesions noted Course Vital Signs: Vital signs: Vital Signs Temperature 98.0 F 08/24/24 13:12 Pulse Rate 70 08/24/24 13:12 Blood Pressure 161/117 08/24/24 13:12 Pulse Oximetry 96 08/24/24 13:12 Oxygen Delivery Me thod Room Air 08/24/24 13:12 MDM - Extremity (Nontraumatic) Medical Decision Making ROS: Limited review of systems due to language barrier. Musculoskeletal: Positive for left leg pain and numbness All other systems reviewed and negative PAST HISTORICAL DATA: PMH: Prediabetic PSH: Left leg vein removal (1979) Two prior knee surgeries VITAL SIGNS: No vital signs documented during this encounter PHYSICAL EXAM: General: Alert, non-toxic appearing, in no apparent distress HEENT: Head normocephalic and atraumatic. Mucous membranes moist Neck: Supple Respiratory: No increased work of breathing, No wheezing Cardiac: Regular rate and rhythm, 2+ DVT pulses to bilateral lower extremities Abdomen: Soft, non-distended, no rebound or guarding Extremities: Left lower leg shows mild diffuse swelling and ecchymosis to anterior aspect. Left calf tenderness present. Neurovascularly intact. No significant pain with range of motion of left knee or ankle Neuro: No focal motor or sensory deficits noted INITIAL IMPRESSION AND PLAN: Given the history and presentation, the primary working diagnosis is post-traumatic leg injury with possible deep vein thrombosis (DVT). Additional considerations include superficial thrombophlebitis and post-surgical changes. Plan: 1. Left tibia/fibula X-ray 2. Venous duplex ultrasound of left lower extremity 3. Pain management as needed TEST INTERPRETATIONS: Left Tibia/Fibula X-ray: Tibia and fibula intact. No acute fracture identified. Note made that if ongoing clinical suspicion for traumatic injury exists, correlation with CT scan should be considered. Venous Duplex Ultrasound: No sonographic evidence of DVT in left lower extremity. Abnormal left greater saphenous vein noted, possibly related to post-procedural changes versus superficial thrombophlebitis CONSIDERED BUT NOT PERFORMED: CT scan of left lower extremity CONSIDERED but NOT DONE due to normal X-ray findings and lack of clinical indication for advanced imaging at this time FINAL IMPRESSION: Based on all the above, my clinical impression is most compatible with post-traumatic injury with residual ecchymosis and possible superficial thrombophlebitis of the left lower extremity. The clinical picture is not currently suggestive of acute DVT or fracture. Although other conditions were also considered, they were deemed unlikely based on the clinical information available. CLINICAL DISPOSITION: The patient's current condition is stable in my estimation and the most appropriate and indicated disposition at this time is discharge home with supportive care. Rationale for Discharge: Patient is stable with normal X-ray findings, no evidence of DVT on ultrasound, intact neurovascular status, and ability to ambulate. Pain can be managed outpatient with prescribed medication and conservative measures. RISK STRATIFICATION AND CLINICAL DECISION RULES APPLIED: Wells' Criteria for DVT was considered - Low risk given normal duplex ultrasound findings and minimal unilateral swelling CASE SUMMARY: Elderly [place]yanese-speaking female presents two weeks post fall with left leg pain and numbness. Initial injury caused significant ecchymosis. Past surgical history significant for left leg vein removal and knee surgeries. Examination revealed mild swelling and bruising. Diagnostic workup including X-ray and venous duplex ultrasound showed no acute findings but noted possible superficial thrombophlebitis. Patient discharged home with pain medication and conservative management instructions. Patient to f/u with her PCP for recheck this week. Lab Data Radiology Impressions Tibia/Fibula X-Ray 08/24/24 13:44 IMPRESSION: 1. Tibia and fibula are intact. If there is ongoing clinical suspicion for traumatic injury, consider correlation with CT. Venous Duplex 08/24/24 13:44 IMPRESSION: 1. No sonographic evidence of deep venous thrombosis in the left lower extremity. 2. Abnormal left greater saphenous vein raising the question of postprocedural change versus superficial thrombophlebitis. All radiology interpretation(s) finalized by discharge Discharge Plan Discharge Patient Disposition: Home Clinical Impression: Contusion of left leg Qualifiers: Encounter type: subsequent encounter Qualified Code(s): S80.12XD - Contusion of left lower leg, subsequent encounter Condition: Stable Prescriptions: New hydrocodone-acetaminophen 5-325 mg tablet 1 tab PO Q8H Qty: 10 0RF No Action irbesartan-hydrochlorothiazide 300-12.5 mg tablet 1 tab PO DAILY (DME) custom inserts See Rx Instructions .Route .MEDSUPPLY Qty: 1 0RF Rx Instructions: As directed to [employer] cinnamon bark [Cinnamon] 500 mg Capsule 500 mg PO DAILY multivitamin Tablet 1 tab PO DAILY simvastatin 40 mg tablet 40 mg PO BEDTIME calcium carbonate [Calcium 500] 500 mg calcium (1,250 mg) Tablet 500 mg PO DAILY levothyroxine 50 mcg tablet 50 mcg PO QAM pantoprazole 40 mg tablet,delayed release (DR/EC) 40 mg PO DAILY metformin 500 mg tablet extended release 24 hr 500 mg PO DAILY Discharge Orders: Discharge ED (Routine); Ordered 08/24/24 Ordered By: Leandro Tucker Referrals: Harjit Gruber MD [Primary Care Provider, Family Practice] Discharge Activity: Increase activity as tolerated Patient Instructions: Contusion in Adults (ED), Opioid Safety, Pain Management Activity Restrictions/Additional Instructions: DISCHARGE INSTRUCTIONS: 1. Take prescribed hydrocodone as directed for pain 2. Apply ice for 20 minutes at a time, several times per day 3. Elevate the affected leg above heart level when resting Return to the Emergency Department if you experience: - Severe increase in pain or swelling - New numbness or tingling - Difficulty walking - Any other concerning symptoms Print Language: Guyanese Coding Level of Care Code ED Quality Technician for Vitaliy Pastrana
[2024-08-24 15:08] VITALS: BP 146/74; PULSE 65; O2SAT 95
[2024-08-24 15:24] VITALS: BP 141/81; PULSE 66; O2SAT 95
== END 2024-08-24 15:25 | disposition home or self-care (01) ==
PROVIDERS: Emergency Provider Student in an Organized Health Care Education/Training Program; PCP Family Medicine
DX: S80.12XA Contusion of left lower leg, initial encounter (principal); W19.XXXA Unspecified fall, initial encounter
CPT/HCPCS: 73590; 93971; 99284

== ENCOUNTER → 2024-09-12 07:56 | Outpatient (BNVA) | payer OTHER, MEDICAID, SELFPAY | PROVIDERS: PCP Family Medicine; Visit Provider Specialist | DX: M17.0 Bilateral primary osteoarthritis of knee (principal) | CPT/HCPCS: 20610; J1100; J2795; J3301; J9999 ==

== ENCOUNTER → 2024-12-19 08:43 | Outpatient (BNVA) | payer OTHER, MEDICAID, SELFPAY | PROVIDERS: PCP Family Medicine; Visit Provider Specialist | DX: M17.0 Bilateral primary osteoarthritis of knee (principal) | CPT/HCPCS: 20610; J1100; J2795; J3301; J9999 ==

== ENCOUNTER → 2025-03-20 08:52 | Outpatient (BNVA) | payer MEDICARE, MEDICAID, SELFPAY | PROVIDERS: PCP Family Medicine; Visit Provider Specialist | DX: M17.0 Bilateral primary osteoarthritis of knee (principal) | CPT/HCPCS: 20610; J1100; J2795; J3301; J9999 ==